=== PATIENT | female | born 1990 | race Caucasian/White ===

== ENCOUNTER 2019-09-05 17:33 | Emergency (ER) | payer SELFPAY ==
[~2019-09-05] VITALS: Ht 165.1 cm; Wt 68.0 kg
[2019-09-05 17:33] VITALS: BP_SYST 127
[2019-09-05] MEDS ORDERED: NACL 0.9% 1,000 ML IV ONE (19:17)
[2019-09-05 20:00] LABS: BASOPHILS % (AUTO) 0.5 % (0.0-2.0); EOSINOPHILS % (AUTO) 0.2 % (0.0-4.0); HEMATOCRIT 40.4 % (36-48); HEMOGLOBIN 13.3 g/dL (12.0-16.0); LYMPHOCYTES # (AUTO) 2.9 K/uL (1.0-5.5); LYMPHOCYTES % (AUTO) 38.4 % (20.5-51.5); MEAN CORPUSCULAR HEMOGLOBIN 32 pg (27-31); MEAN CORPUSCULAR HGB CONC 33 % (32-36); MEAN CORPUSCULAR VOLUME 97 fL (79.0-98.0); MONOCYTES # (AUTO) 0.2 K/uL (0.0-1.0); MONOCYTES % (AUTO) 2.2 % (1.7-9.3); NEUTROPHILS # (AUTO) 4.4 K/uL (1.8-7.7); NEUTROPHILS % (AUTO) 58.7 % (40.0-70.0); PLATELET COUNT (AUTO) 329 K/uL (130-430); RED BLOOD CELL COUNT(AUTO) 4.18 MIL/uL (4.2-6.2); RED CELL DISTRIBUTION WIDTH 13.4 % (9.0-15.0); WHITE BLOOD COUNT (AUTO) 7.4 K/uL (4.8-10.8)
[2019-09-05 20:25] LABS: POTASSIUM 3.9 mmol/L (3.5-5.1)
[2019-09-05 20:26] LABS: CALCIUM 7.8 mg/dL (8.4-11.0); CREATININE 0.95 mg/dL (0.55-1.30); TOTAL BILIRUBIN 0.3 mg/dL (0.0-1.0)
[2019-09-05 20:27] LABS: ALBUMIN 3.5 g/dL (3.4-4.8)
[2019-09-05 20:34] LABS: BILIRUBIN,URINE NEGATIVE (NEGATIVE); CLARITY/URINE CLEAR (CLEAR); GLUCOSE,URINE NEGATIVE (NEGATIVE); KETONES,URINE NEGATIVE (NEGATIVE); LEUKOCYTE ESTERASE ,URINE NEGATIVE (NEGATIVE); NITRITE, URINE NEGATIVE (NEGATIVE); PROTEIN URINE NEGATIVE (NEGATIVE); UROBILINOGEN,URINE 0.2 (0.2-1.0)
[2019-09-05 21:03] LABS: BLOOD, URINE TRACE (NEGATIVE); COLOR,URINE STRAW (YELLOW)
[2019-09-05 21:21] LABS: BARBITURATE, URINE NEGATIVE (NEG <=200); BENZODIAZEPINE, URINE NEGATIVE (NEG <=150); CANNABINOID, URINE NEGATIVE (NEG <=50); COCAINE, URINE NEGATIVE (NEG <=150); METHAMPHETAMINES SCREEN,URINE NEGATIVE (NEG <=500); OPIATE, URINE NEGATIVE (NEG <=100); PHENCYCLIDINE SCREEN,URINE NEGATIVE (NEG <=25); UR TRICYCLIC ANTIDEPRESSANTS NEGATIVE (NEG <=300); URINE AMPHETAMINE NEGATIVE (NEG <=500); URINE METHADONE NEGATIVE (NEG <=200); URINE OXYCODONE SCREEN NEGATIVE (NEG <=100); URINE PROPOXYPHENE SCREEN NEGATIVE (NEG <=300)
[2019-09-05 21:23] LABS: BACTERIA,URINE RARE /HPF (None Seen); RBC,URINE 0-3 /HPF (0-3); WBC,URINE 0-3 /HPF (0-3)
[2019-09-05 21:24] LABS: MUCUS,URINE None Seen /LPF (None Seen)
[2019-09-05] MEDS ORDERED: NACL 0.9% 2,000 ML IV ONE (22:30)
[2019-09-05] MEDS ORDERED: FOLIC ACID 1 MG, THIAMINE HCL 100 MG, MAGNESIUM SULFATE 1 GM, MVI 10 ML in NACL 0.9% 1,... IV ONE (23:00)
[2019-09-05] MEDS ORDERED: FOLIC ACID 5 MG/ML VIAL IV ONE (23:19)
[2019-09-05] MEDS ORDERED: MAGNESIUM SULFATE 1 GM/2 ML VIAL ONE (23:19)
[2019-09-05] MEDS ORDERED: THIAMINE HCL 100 MG/ML VIAL ONE (23:19)
[2019-09-05] MEDS ORDERED: MVI 10 ML VIAL IV ONE (23:19)
[2019-09-06 00:55] VITALS: BP_SYST 120
== END 2019-09-06 00:55 | disposition home or self-care (01) ==
LOC: SED 17:33
DX: R41.82 Altered mental status, unspecified (principal); F10.129 Alcohol abuse with intoxication, unspecified; Y90.8 Blood alcohol level of 240 mg/100 ml or more
CPT/HCPCS: 36415; 71045; 80053; 80307; 81000; 83605; 85025; 87040; 96361; 96365; 96366; 99284; G0482; J3411; J3475; J3490; J7030; 99285

== ENCOUNTER 2021-10-05 13:49 | Emergency (ER) | payer BC ==
[~2021-10-05] VITALS: Ht 157.5 cm; Wt 65.8 kg
--- NOTE | 2021-10-05 13:55 | NUR ---
Pt brought by self, A&Ox4, pt presents to ER with tremors, anxiety and SOB, states Hx of alcoholism, Last drink today at 0500 am, skin pink and warm, respirations even and unlabored, cap refill <3.
[2021-10-05 14:05] VITALS: BP_SYST 153
[2021-10-05 14:49] LABS: BASOPHILS % (AUTO) 1.1 % (0.0-2.0); EOSINOPHILS # (AUTO) 0.2 K/uL (0.0-0.4); EOSINOPHILS % (AUTO) 4.2 % (0.0-4.0); HEMATOCRIT 38.8 % (36-48); HEMOGLOBIN 13.1 g/dL (12.0-16.0); LYMPHOCYTES # (AUTO) 1.3 K/uL (1.0-5.5); LYMPHOCYTES % (AUTO) 29.8 % (20.5-51.5); MEAN CORPUSCULAR HEMOGLOBIN 33 pg (27-31); MEAN CORPUSCULAR HGB CONC 34 % (32-36); MEAN CORPUSCULAR VOLUME 97 fL (79.0-98.0); MONOCYTES # (AUTO) 0.3 K/uL (0.0-1.0); MONOCYTES % (AUTO) 8.1 % (1.7-9.3); NEUTROPHILS # (AUTO) 2.4 K/uL (1.8-7.7); NEUTROPHILS % (AUTO) 56.8 % (40.0-70.0); PLATELET COUNT (AUTO) 92 K/uL (130-430); RED BLOOD CELL COUNT(AUTO) 4.02 MIL/uL (4.2-6.2); RED CELL DISTRIBUTION WIDTH 14.6 % (9.0-15.0); WHITE BLOOD COUNT (AUTO) 4.2 K/uL (4.8-10.8)
[2021-10-05 15:06] LABS: ANION GAP 9 (5-15); CHLORIDE 102 mmol/L (98-107); CREATININE 0.98 mg/dL (0.55-1.30); GLUCOSE 89 mg/dL (70-99); POTASSIUM 3.8 mmol/L (3.5-5.1); SODIUM SERUM 139 mmol/L (136-145); UREA NITROGEN, BLOOD 5 mg/dL (8-21)
[2021-10-05 15:08] LABS: GFR AFRICAN AMERICAN 85 mL/min (>90)
[2021-10-05 15:11] LABS: ALANINE AMINOTRANSFERASE 247 U/L (12-78); ALBUMIN 3.3 g/dL (3.4-4.8); ALCOHOL, BLOOD 3 mg/dL (<10); ASPARTATE AMINOTRANSFERASE 414 U/L (10-37); TOTAL BILIRUBIN 0.3 mg/dL (0.0-1.0)
[2021-10-05 15:12] LABS: ACETAMINOPHEN < 1 ug/mL (1-30)
--- NOTE | 2021-10-05 16:00 | NUR ---
Dr Castillo evaluating patient at bedside
[2021-10-05] MEDS ORDERED: LORazepam 1 MG TABLET PO ONE ×2 (16:30→23:00)
[2021-10-05] MEDS ORDERED: ONDANSETRON 4 MG ODT TAB PO ONE (16:30)
[2021-10-05] MEDS ORDERED: NACL 0.9% 1,000 ML IV ONE (16:30)
[2021-10-05] MEDS ORDERED: cloNIDine HCL 0.1 MG TABLET PO ONE (16:30)
[2021-10-05 17:01] LABS: BILIRUBIN,URINE 1+ (NEGATIVE); BLOOD, URINE 2+ (NEGATIVE); COLOR,URINE YELLOW (YELLOW); GLUCOSE,URINE NEGATIVE (NEGATIVE); KETONES,URINE TRACE (NEGATIVE); LEUKOCYTE ESTERASE ,URINE NEGATIVE (NEGATIVE); NITRITE, URINE NEGATIVE (NEGATIVE); PH,URINE 5.5 (5.0-8.0); PROTEIN URINE TRACE (NEGATIVE); UROBILINOGEN,URINE 0.2 (0.2-1.0)
--- NOTE | 2021-10-05 17:10 | NUR ---
Pt A&Ox4, VSS, respirations even and unlabored, cap refill <3.
[2021-10-05 17:18] LABS: CLARITY/URINE HAZY (CLEAR)
[2021-10-05 17:38] LABS: BACTERIA,URINE FEW /HPF (None Seen)
[2021-10-05 17:39] LABS: BARBITURATE, URINE NEGATIVE (NEG <=200); MUCUS,URINE 3+ /LPF (None Seen); URINE AMPHETAMINE POSITIVE (NEG <=500)
[2021-10-05 17:40] LABS: BENZODIAZEPINE, URINE NEGATIVE (NEG <=150); CANNABINOID, URINE NEGATIVE (NEG <=50); COCAINE, URINE NEGATIVE (NEG <=150); METHAMPHETAMINES SCREEN,URINE POSITIVE (NEG <=500); OPIATE, URINE NEGATIVE (NEG <=100); PHENCYCLIDINE SCREEN,URINE NEGATIVE (NEG <=25); UR TRICYCLIC ANTIDEPRESSANTS NEGATIVE (NEG <=300); URINE METHADONE NEGATIVE (NEG <=200); URINE OXYCODONE SCREEN NEGATIVE (NEG <=100); URINE PROPOXYPHENE SCREEN NEGATIVE (NEG <=300)
--- NOTE | 2021-10-05 19:40 | NUR ---
Report given to Dulce HICKS
[2021-10-05] MEDS ORDERED: cloNIDine HCL 0.1 MG TABLET ONE (20:31)
[2021-10-05] MEDS ORDERED: LORazepam 1 MG TABLET ONE (20:31)
[2021-10-05] MEDS ORDERED: LIB25 PO (22:20)
[2021-10-05] MEDS ORDERED: ONDA-8 TL ×2 (22:20→22:21)
[2021-10-05] MEDS ORDERED: LIB25 BC (22:22)
--- NOTE | 2021-10-05 23:00 | NUR ---
Pt states "voices in her head have calmed down and she feels safer" Pt is sitting at edge of bed requesting pharmacy information and vebally understands where to attain prescibed medication.
--- NOTE | 2021-10-05 23:15 | NUR ---
Patient given written and verbal discharge instructions and verbalizes understanding. ER MD discussed with patient the results and treatment provided. Patient in stable condition. ID arm band removed. IV catheter removed intact and dressing applied, no active bleeding. Rx of Librium given. Opportunity for questions provided and answered. Medication side effect fact sheet provided.
[2021-10-06 06:48] VITALS: BP_SYST 146
== END 2021-10-06 06:48 | disposition home or self-care (01) ==
LOC: SED 13:49
DX: F10.239 Alcohol dependence with withdrawal, unspecified (principal); F41.9 Anxiety disorder, unspecified; F15.10 Other stimulant abuse, uncomplicated; R74.01 Elevation of levels of liver transaminase levels; I10 Essential (primary) hypertension; Z79.899 Other long term (current) drug therapy; Y90.0 Blood alcohol level of less than 20 mg/100 ml
CPT/HCPCS: 99285; 80307; 80053; 84703; 85025; 36415; 81025; 81000; G0480; G0481; G0482